=== PATIENT | male | born 1990 | race Caucasian/White ===

== ENCOUNTER 2017-07-29 06:39 | Emergency (ER) | payer OTHER ==
[~2017-07-29] VITALS: Ht 180.3 cm; Wt 81.7 kg
[~2017-07-29 06:39] MED LIST: AUGMENTIN 500-1 EACH PO; MEDROL DOSPAK21 TAB PO; [UNRECOGNIZED DRUG - OTHER]
[2017-07-29 08:06] LABS: HEMATOCRIT 42.1 % (42.0-52.0); HEMOGLOBIN 14.7 gm/dL (14.0-18.0); MCH 32.4 pg (26.0-34.0); MCHC 34.9 g/dL (28.0-37.0); MCV 92.7 fL (80.0-100.0); RBC 4.54 mil/uL (4.50-6.00); RDW 12.3 % (10.5-14.5); WBC 7.8 thou/uL (4.0-11.0)
[2017-07-29 08:23] LABS: ALBUMIN 3.7 g/dL (3.4-5.0); TOTAL PROTEIN 6.8 g/dL (6.4-8.2)
[2017-07-29] MEDS ORDERED: OXYCODONE HCL 55 MG PO (08:55)
[2017-07-29 09:42] VITALS: BP 105/62
== END 2017-07-29 09:35 | disposition home or self-care (01) ==
LOC: ER 06:39
PROVIDERS: Emergency Medicine
DX: K85.90 Acute pancreatitis without necrosis or infection, unspecified (principal); F10.99 Alcohol use, unspecified with unspecified alcohol-induced disorder

== ENCOUNTER 2021-01-18 01:51 | Emergency (ER) | payer BC ==
[~2021-01-18] VITALS: Ht 180.3 cm; Wt 104.3 kg
[~2021-01-18 01:51] MED LIST changes: +OXYCODONE HCL 55 MG PO
[2021-01-18 02:41] LABS: ABSOLUTE NEUTROPHILS 4.3 thou/uL (1.4-8.2); BASOPHILS 0.3 % (0.0-2.0); EOSINOPHILS 0.6 % (0.0-3.0); HEMOGLOBIN 13.9 gm/dL (14.0-18.0); LYMPHOCYTES 17.2 % (24.0-44.0); MCH 30.3 pg (26.0-34.0); MCHC 33.1 g/dL (28.0-37.0); MCV 91.5 fL (80.0-100.0); MONOCYTES 18.2 % (1.0-8.0); PLATELET COUNT 241 thou/uL (150-400); POLYS 63.7 % (36.0-66.0); RBC 4.59 mil/uL (4.50-6.00); RDW 12.6 % (10.5-14.5); WBC 6.8 thou/uL (4.0-11.0)
[2021-01-18 02:44] LABS: ANION GAP 13 mmol/L (7-16); BUN 11 mg/dL (7-18); CALCIUM 8.6 mg/dL (8.5-10.1); CHLORIDE 95 mmol/L (98-107); CO2 25 mmol/L (21-32); CREATININE 1.2 mg/dL (0.7-1.3); GLUCOSE 89 mg/dL (74-106); POTASSIUM 3.3 mmol/L (3.5-5.1); SODIUM 133 mmol/L (136-145)
[2021-01-18 02:54] LABS: ALBUMIN 3.6 g/dL (3.4-5.0); AMYLASE 34 U/L (25-115); DIRECT BILIRUBIN < 0.1 mg/dL (<0.1-0.2); LIPASE 78 U/L (73-393); SGOT 20 U/L (15-37); SGPT 37 U/L (16-63); TOTAL BILIRUBIN 0.5 mg/dL (0.2-1.0); TOTAL PROTEIN 7.8 g/dL (6.4-8.2); TROPONIN-I <0.06 ng/mL (<0.06)
[2021-01-18 03:08] LABS: URINE BILIRUBIN 2+ (Negative); URINE BLOOD TRACE (Negative); URINE CLARITY CLEAR; URINE COLOR YELLOW; URINE GLUCOSE-RANDOM* NEGATIVE (Negative); URINE KETONES 3+ (Negative); URINE LEUKOCYTES-REFLEX NEGATIVE (Negative); URINE NITRITE-REFLEX NEGATIVE (Negative); URINE PROTEIN (DIPSTICK) TRACE (Negative); URINE SPECIFIC GRAVITY 1.025 (1.005-1.035); URINE UROBILINOGEN 0.2 E.U./dl (0.2-1.0)
[2021-01-18 03:11] LABS: ICTOTEST (BILI CONFIRMATORY) Positive (Negative)
[2021-01-18] MEDS ORDERED: NAPROSYN500 MG PO (03:50)
[2021-01-18] MEDS ORDERED: COMPAZINE10 M2 PO (03:50)
[2021-01-18] MEDS ORDERED: TYLENOL325 M1 PO (03:50)
[2021-01-18] MEDS ORDERED: KLOR-CON 10 ER10 MEQ PO (03:54)
[2021-01-18] MEDS ORDERED: ACID-PEP20 MG PO (03:56)
[2021-01-18 04:04] VITALS: BP 135/68
--- NOTE | 2021-01-18 14:18 | EKG ---
[place] [address] [address] [facility] [place] [address] ELECTROCARDIOGRAM REPORT Name: DAWSON GARCIA Room #: DEP Javier#: [id number] Admission: 01/18/21 Attend Phys: Discharge: 01/18/21 Date of : 89 Report #: [id number] [facility] ED Test Date: 2021-01-18 Test Time: 02:40:45 Pat Name: DAWSON GARCIA Department: Room: Gender: M Elevator Attendant: mj napier : 1990 Requested By: German Arizmendi Order Number: [id number] MD: Power Ramos Measurements Intervals [place] Rate: 83 P: 51 W[place]: 137 QRS: -39 QRSD: 101 T: 14 QT: 356 QTc: 419 Interpretive Statements Sinus rhythm Left axis deviation No previous ECG available for comparison Electronically Signed On 01-18-2021 14:18:03 [employer] by Power Ramos [email or web address] <ELECTRONICALLY SIGNED> By: Power Ramos MD, [facility] 01/18/21 1418 0240 0240 Power Ramos MD, FACC /EPI
== END 2021-01-18 04:17 | disposition home or self-care (01) ==
LOC: ER 01:51
PROVIDERS: Emergency Medicine
DX: J06.9 Acute upper respiratory infection, unspecified (principal); R51.9 Headache, unspecified; E87.6 Hypokalemia; R11.2 Nausea with vomiting, unspecified; R10.11 Right upper quadrant pain; R10.31 Right lower quadrant pain; Z90.89 Acquired absence of other organs; Z20.822 Contact with and (suspected) exposure to COVID-19